=== PATIENT | male | born 1935 | race Caucasian/White ===

== ENCOUNTER 2020-09-14 15:00 | Emergency (ER) | payer OTHER ==
[2020-09-14 15:18] VITALS: BMI 24.7
[2020-09-14] MEDS ORDERED: DIPHTH,PERTUSS(ACELL),TET 0.5 ML DISP.SYRIN IM ONE ×2 (15:18→15:19)
[2020-09-14] MEDS ORDERED: AMOX TR/POT CLAV 875MG/125MG TABLETS (FP) PO ONE (17:01)
[2020-09-14] MEDS ORDERED: AMOX TR/POT CLAV 875MG/125MG TABLETS (FP) ONE (17:08)
[2020-09-14 17:52] VITALS: BP 128/77; PULSE 71; TEMP 97.6
== END 2020-09-14 17:30 | disposition home or self-care (01) ==
LOC: FER 15:00
PROC: 3E0234Z Introduction of Serum, Toxoid and Vaccine into Muscle, Percutaneous Approach (ICD-10-PCS; principal; 2020-09-14)
DX: S01.21XA Laceration without foreign body of nose, initial encounter (principal); S02.2XXA Fracture of nasal bones, initial encounter for closed fracture
CPT/HCPCS: 70450-TC; 70486-TC; 72125-TC; 90471; 90715; 99285-25

== ENCOUNTER 2020-09-18 05:07 | Observation (INO) | payer OTHER ==
[2020-09-18] MEDS ORDERED: ACETAMINOPHEN 1000 MG/100 ML VIAL (NON FORMULARY) IVPB ONE (06:47)
[2020-09-18] MEDS ORDERED: ACETAMINOPHEN INJECTION 100 ML IVPB ONE (06:52)
[2020-09-18 07:20] LABS: ALBUMIN 3.4 g/dl (3.4-5.0); ALK PHOS 131 U/L (45-117); ANION GAP 7 MMOL/L (8-16); BILIRUBIN,TOTAL 0.7 mg/dL (0.2-1); BLOOD UREA NITROGEN 12.1 mg/dL (7-18); CALCIUM 8.7 mg/dL (8.5-10.1); CHLORIDE 108 mmol/L (98-107); CO2 27 mmol/L (21-32); CREATININE 0.9 mg/dL (0.55-1.3); GLUCOSE,RANDOM 91 mg/dL (74-106); SGOT/AST 24 U/L (15-37); SGPT/ALT 35 U/L (13-61); SODIUM 142 mmol/L (136-145); TOT PROT 6.7 g/dl (6.4-8.2)
[2020-09-18 07:26] LABS: BASO % 0.9 % (0-2.0); EOS % 1.7 % (0-4.5); HEMATOCRIT 37.4 % (35.4-49); HEMOGLOBIN 12.6 GM/dL (11.7-16.9); MCH 30.8 pg (25.7-33.7); MCHC 33.8 g/dl (32.0-35.9); MEAN CELL VOLUME 91.2 fl (80-96); MEAN PLT VOLUME 7.3 fl (7.5-11.1); MONO % 7.7 % (3.8-10.2); NEUT % 71.7 % (42.8-82.8); PLATELET COUNT 196 10^3/uL (134-434); RDW 15.3 % (11.9-15.9); WHITE BLOOD COUNT 8.9 K/mm3 (4.0-10.0)
[2020-09-18] MEDS ORDERED: DOCUSATE SODIUM 100 MG CAPSULE (FP) PO SCH (11:45)
[2020-09-18] MEDS ORDERED: ACETAMINOPHEN 325 MG TABLET (FP) PO PRN (11:47)
[2020-09-18 13:58] VITALS: BMI 25.4
[2020-09-18] MEDS ORDERED: SIMETHICONE 125 MG PO SCH (14:00)
[2020-09-18] MEDS: AMOX TR/POT CLAV 875MG/125MG TABLETS (FP) PO SCH ×2 (14:30→21:17)
[2020-09-18] MEDS: SIMETHICONE 80 MG TAB.CHEW (FP) PO SCH (21:18)
[2020-09-18] MEDS ORDERED: QUEtiapine FUMARATE 25 MG TABLET PO SCH (22:00)
[2020-09-18] MEDS ORDERED: CLOPIDOGREL BISULFATE 75 MG TABLET (FP) PO SCH (22:00)
[2020-09-18] MEDS ORDERED: LOSARTAN POTASSIUM 50 MG TABLET PO SCH (22:00)
[2020-09-18] MEDS ORDERED: PATIENT'S OWN MEDICATION (NON-FORMULARY) (Olmesartan Medoxomil [Olmesartan Medoxomil] 40 M PO SCH (22:00)
[2020-09-18] MEDS ORDERED: PATIENT'S OWN MEDICATION (NON-FORMULARY) (Mirtazapine [Mirtazapine] 7.5 MG Tablet) PO SCH (22:00)
[2020-09-18] MEDS ORDERED: ATORVASTATIN CA 20 MG TABLET (FP) PO SCH (22:00)
[2020-09-18] MEDS ORDERED: MIRTAZAPINE 15 MG TABLET (FP) PO SCH (22:00)
[2020-09-19] MEDS: SIMETHICONE 80 MG TAB.CHEW (FP) PO SCH ×2 (06:19→14:24)
[2020-09-19 08:01] LABS: BASO % 2.2 % (0-2.0); EOS % 3.1 % (0-4.5); HEMATOCRIT 36.3 % (35.4-49); HEMOGLOBIN 11.8 GM/dl (11.7-16.9); LYMPH % 21.3 % (8-40); MCHC 32.4 g/dl (32.0-35.9); MEAN CELL VOLUME 92.5 fl (80-96); MEAN PLT VOLUME 7.4 fl (7.5-11.1); MONO % 11.1 % (3.8-10.2); NEUT % 62.3 % (42.8-82.8); PLATELET COUNT 182 10^3/uL (134-434); RBC 3.92 M/mm3 (4.00-5.60); RDW 14.1 % (11.9-15.9); WHITE BLOOD COUNT 5.2 K/mm3 (4.0-10.8)
[2020-09-19 08:13] LABS: BILIRUBIN,TOTAL 1.5 mg/dl (0.2-1); CALCIUM 8.6 mg/dl (8.5-10); CREATININE 0.9 mg/dl (0.55-1.3); MAGNESIUM 1.9 mg/dL (1.8-2.4); TOT PROT 5.9 g/dl (6.4-8.2)
[2020-09-19 08:25] LABS: ACTIVATED PTT 28.3 SECONDS (25.2-36.5)
[2020-09-19 08:30] LABS: INR 1.22 (0.82-1.09); PROTHROMBIN TIME (PATIENT) 13.5 SEC (10.2-13.0)
[2020-09-19 09:03] VITALS: BP 124/63; PULSE 69; TEMP 99
[2020-09-19] MEDS: AMOX TR/POT CLAV 875MG/125MG TABLETS (FP) PO SCH (09:54)
== END 2020-09-19 14:36 ==
LOC: FER 05:07 → FM/S 11:04 → INTOOBSV 13:11 → UNDOADMOB 13:11 → FM/S 13:11
PROVIDERS: ADMIT Internal Medicine; ATTEND Nurse Practitioner Acute Care
PROC: 3E033NZ Introduction of Analgesics, Hypnotics, Sedatives into Peripheral Vein, Percutaneous Approach (ICD-10-PCS; principal; 2020-09-18)
DX: S32.692A Other specified fracture of left ischium, initial encounter for closed fracture (principal); W19.XXXA Unspecified fall, initial encounter; Z91.81 History of falling; Y93.9 Activity, unspecified; Y92.129 Unspecified place in nursing home as the place of occurrence of the external cause; I25.10 Atherosclerotic heart disease of native coronary artery without angina pectoris; I10 Essential (primary) hypertension; E78.5 Hyperlipidemia, unspecified; I25.2 Old myocardial infarction; F03.90 Unspecified dementia, unspecified severity, without behavioral disturbance, psychotic disturbance, mood disturbance, and anxiety; Z86.73 Personal history of transient ischemic attack (TIA), and cerebral infarction without residual deficits; Z79.02 Long term (current) use of antithrombotics/antiplatelets
CPT/HCPCS: 36415; 70450-TC; 71045-TC-FY; 72192-TC; 73523-TC-FY; 80053; 82550; 82553; 83735; 84484; 85025; 85610; 85730; 93005; 93306-TC; 93880-TC; 96374; 97116-GP; 97161-GP; 99285-25; C9803; G0378; J0131; U0003; U0005

== ENCOUNTER 2020-09-22 12:15 | Emergency (ER) | payer OTHER ==
[2020-09-22 12:50] VITALS: BP 136/61; PULSE 73; TEMP 97.8; BMI 25.4
[2020-09-22 14:23] LABS: INR 1.09 (0.82-1.09); PROTHROMBIN TIME (PATIENT) 12.1 SEC (10.2-13.0)
[2020-09-22 14:24] LABS: BASO % 2.3 % (0-2.0); EOS % 1.6 % (0-4.5); HEMATOCRIT 35.3 % (35.4-49); HEMOGLOBIN 11.4 GM/dl (11.7-16.9); MCH 29.8 pg (25.7-33.7); MCHC 32.4 g/dl (32.0-35.9); MEAN CELL VOLUME 92.1 fl (80-96); MEAN PLT VOLUME 7.5 fl (7.5-11.1); NEUT % 63.1 % (42.8-82.8); PLATELET COUNT 198 10^3/uL (134-434); RBC 3.83 M/mm3 (4.00-5.60); RDW 14.7 % (11.9-15.9); WHITE BLOOD COUNT 5.3 K/mm3 (4.0-10.8)
[2020-09-22 14:28] LABS: ALBUMIN 3.2 g/dl (3.4-5.0); BILIRUBIN,TOTAL 1.2 mg/dl (0.2-1); CALCIUM 8.4 mg/dl (8.5-10); TOT PROT 6.4 g/dl (6.4-8.2)
== END 2020-09-22 15:16 | disposition home or self-care (01) ==
LOC: FER 12:15
DX: S09.90XA Unspecified injury of head, initial encounter (principal)
CPT/HCPCS: 36415; 70450-TC; 71045-TC-FY; 72125-TC; 72170-TC-FY; 80053; 81003; 83735; 85025; 85610; 87086; 93005; 99285-25; C9803; U0003; U0005

== ENCOUNTER 2020-10-08 07:59 | Emergency (ER) | payer OTHER ==
[2020-10-08 08:49] VITALS: BMI 26.6
[2020-10-08 08:50] LABS: BASO % 0.8 % (0-2.0); EOS % 3.8 % (0-4.5); HEMATOCRIT 33.8 % (35.4-49); HEMOGLOBIN 11.2 GM/dl (11.7-16.9); LYMPH % 31.1 % (8-40); MCH 30.4 pg (25.7-33.7); MCHC 33.1 g/dl (32.0-35.9); MEAN CELL VOLUME 91.9 fl (80-96); MEAN PLT VOLUME 7.2 fl (7.5-11.1); MONO % 11.5 % (3.8-10.2); NEUT % 52.8 % (42.8-82.8); PLATELET COUNT 212 10^3/uL (134-434); RBC 3.68 M/mm3 (4.00-5.60); RDW 14.4 % (11.9-15.9); WHITE BLOOD COUNT 4.4 K/mm3 (4.0-10.8)
[2020-10-08 08:58] LABS: ALBUMIN 3.5 g/dl (3.4-5.0); ALK PHOS 159 U/L (45-117); ANION GAP 11 MMOL/L (8-16); BILIRUBIN,TOTAL 0.8 mg/dl (0.2-1); CALCIUM 8.9 mg/dl (8.5-10); CHLORIDE 103 mmol/L (98-107); CO2 26 mmol/L (21-32); GLUCOSE,RANDOM 97 mg/dl (74-106); SGOT/AST 22 U/L (15-37); SGPT/ALT 22 U/L (13-61); SODIUM 140 mmol/L (136-145); TOT PROT 6.6 g/dl (6.4-8.2)
[2020-10-08 10:34] VITALS: BP 130/70; PULSE 62; TEMP 98.4
== END 2020-10-08 10:41 | disposition home or self-care (01) ==
LOC: FER 07:59
DX: R07.89 Other chest pain (principal)
CPT/HCPCS: 36415; 70450-TC; 71101-TC-RT-FY; 72170-TC-FY; 80053; 81003; 84484; 85025; 93005; 99285-25; C9803; U0003; U0005

== ENCOUNTER 2020-10-31 01:42 | Emergency (ER) | payer OTHER ==
[2020-10-31 01:50] VITALS: BP 140/71; PULSE 64; TEMP 98.7; BMI 26.6
== END 2020-10-31 12:07 | disposition home or self-care (01) ==
LOC: FER 01:42
DX: S46.911A Strain of unspecified muscle, fascia and tendon at shoulder and upper arm level, right arm, initial encounter (principal); W06.XXXA Fall from bed, initial encounter
CPT/HCPCS: 70450-TC; 73030-TC-RT-FY; 99284-25

== ENCOUNTER 2020-10-31 14:55 | Emergency (ER) | payer OTHER ==
[2020-10-31 15:36] VITALS: BP 144/77; PULSE 77; TEMP 98.7; BMI 26.6
== END 2020-10-31 17:55 | disposition home or self-care (01) ==
LOC: FER 14:55
DX: S09.90XA Unspecified injury of head, initial encounter (principal); W01.0XXA Fall on same level from slipping, tripping and stumbling without subsequent striking against object, initial encounter; Y93.01 Activity, walking, marching and hiking
CPT/HCPCS: 70450-TC; 72125-TC; 72170-TC-FY; 73030-TC-RT-FY; 99285-25

== ENCOUNTER 2020-11-21 12:11 | Emergency (ER) | payer OTHER ==
[2020-11-21 12:29] VITALS: BP 147/83; PULSE 71; TEMP 98.1; BMI 25.0
== END 2020-11-21 14:20 | disposition home or self-care (01) ==
LOC: FER 12:11
DX: S09.90XA Unspecified injury of head, initial encounter (principal); W19.XXXA Unspecified fall, initial encounter; Y92.9 Unspecified place or not applicable
CPT/HCPCS: 70450-TC; 99284-25

== ENCOUNTER 2020-11-22 22:19 | Emergency (ER) | payer OTHER ==
[2020-11-22 22:29] VITALS: BP 147/71; PULSE 66; TEMP 98.7; BMI 24.9
== END 2020-11-23 07:34 | disposition home or self-care (01) ==
LOC: SUPCPDRO 22:19 → FER 22:19
DX: M25.511 Pain in right shoulder (principal); W01.0XXA Fall on same level from slipping, tripping and stumbling without subsequent striking against object, initial encounter
CPT/HCPCS: 70450-TC; 71045-TC-FY; 72125-TC; 72170-TC-FY; 99285-25

== ENCOUNTER 2020-11-27 02:12 | Emergency (ER) | payer OTHER ==
[2020-11-27 02:28] VITALS: BP 147/73; PULSE 62; TEMP 97.9; BMI 25.4
[2020-11-27 05:00] LABS: BASO % 0.6 % (0-2.0); EOS % 3.6 % (0-4.5); HEMATOCRIT 33.4 % (35.4-49); HEMOGLOBIN 11.2 GM/dL (11.7-16.9); LYMPH % 31.9 % (8-40); MCHC 33.3 g/dl (32.0-35.9); MEAN CELL VOLUME 90.1 fl (80-96); MEAN PLT VOLUME 7.6 fl (7.5-11.1); MONO % 10.3 % (3.8-10.2); NEUT % 53.6 % (42.8-82.8); PLATELET COUNT 153 10^3/uL (134-434); RBC 3.71 M/mm3 (4.00-5.60); RDW 15.4 % (11.9-15.9); WHITE BLOOD COUNT 5.6 K/mm3 (4.0-10.0)
[2020-11-27 05:18] LABS: CHLORIDE 111 mmol/L (98-107); SODIUM 144 mmol/L (136-145)
[2020-11-27 05:22] LABS: CALCIUM 8.3 mg/dL (8.5-10.1)
[2020-11-27 05:23] LABS: ALBUMIN 2.9 g/dl (3.4-5.0); ANION GAP 6 MMOL/L (8-16); BLOOD UREA NITROGEN 21.4 mg/dL (7-18); CO2 27 mmol/L (21-32); GLUCOSE,RANDOM 118 mg/dL (74-106)
[2020-11-27 05:26] LABS: CREATININE 0.9 mg/dL (0.55-1.3); SGOT/AST 36 U/L (15-37); SGPT/ALT 53 U/L (13-61)
[2020-11-27 05:27] LABS: BILIRUBIN,TOTAL 0.4 mg/dL (0.2-1); TOT PROT 6.6 g/dl (6.4-8.2)
[2020-11-27 05:29] LABS: ALK PHOS 152 U/L (45-117)
== END 2020-11-27 09:04 | disposition home or self-care (01) ==
LOC: FER 02:12
DX: R45.1 Restlessness and agitation (principal); W19.XXXA Unspecified fall, initial encounter
CPT/HCPCS: 36415; 70450-TC; 80053; 82550; 83605; 84484; 85025; 99285-25

== ENCOUNTER 2021-01-16 18:14 | Emergency (ER) | payer OTHER ==
[2021-01-16 18:46] VITALS: BP 148/86; PULSE 69; TEMP 98.8; BMI 24.2
== END 2021-01-16 21:57 | disposition home or self-care (01) ==
LOC: FER 18:14
DX: M25.551 Pain in right hip (principal); W01.0XXA Fall on same level from slipping, tripping and stumbling without subsequent striking against object, initial encounter; Y92.129 Unspecified place in nursing home as the place of occurrence of the external cause
CPT/HCPCS: 70450-TC; 72125-TC; 72192-TC; 99285-25